=== PATIENT | female | born 1950 | race Caucasian/White ===

== ENCOUNTER → 2017-07-09 | Outpatient (CLI) | payer OTHER | LOC: FIMAGING 16:13 | PROVIDERS: ATTEND Internal Medicine | DX: R05 Cough (principal) ==

== ENCOUNTER 2017-07-13 10:52 | Day surgery (SDC) | payer OTHER ==
[2017-07-13] MEDS ORDERED: LIDOCAINE 1% 2 ML INJ ID PRN (11:10)
[2017-07-13] MEDS ORDERED: LR 1,000 ML IV ONE (11:10)
[2017-07-13] MEDS ORDERED: fentaNYL 250 MCG/5 ML INJ ONE (12:02)
[2017-07-13] MEDS ORDERED: PROPOFOL 200 MG/20 ML VIAL ONE (12:03)
[2017-07-13] MEDS ORDERED: fentaNYL 100 MCG/2 ML INJ ONE (12:04)
--- NOTE | 2017-07-13 12:22 | PDANEPAE ---
ANE History of Present Illness 66 year old female with weight loss and GI distress. ANE Past Medical History - Cardiovascular History Hx Hypertension: No Hx Arrhythmias: No Hx Chest Pain: No Hx Coronary Artery / Peripheral Vascular Disease: No Hx CHF / Valvular Disease: No Hx Palpitations: No - Pulmonary History Hx COPD: No Hx Asthma/Reactive Airway Disease: No Hx Recent Upper Respiratory Infection: No Hx Oxygen in Use at Home: Yes Hx Sleep Apnea: Yes Sleep Apnea Screening Result - Last Documented: Negative Pulmonary History Comment: night time O2. - Neurologic History Hx Cerebrovascular Accident: No Hx Seizures: No Hx Dementia: No Neurologic History Comment: Matt-Narciso syndrome, with whole body neuropathy sequelae. - Endocrine History Hx Diabetes: No - Renal History Hx Renal Disorders: No - Liver History Hx Hepatic Disorders: No - Neurological & Psychiatric Hx Hx Neurological and Psychiatric Disorders: Yes Neurological / Psychiatric History Comment: Lumbar compression fx; polyneuropathy;Hx of peripheral neuropathy. "failed spine surgery" - Cancer History Hx Cancer: No - Congenital Disorder History Hx Congenital Disorders: No - GI History Hx Gastrointestinal Disorders: Yes Gastrointestinal History Comment: recent loss of 10 lbs., epigastric pain, early satiety. Hx of gastric erosions-Dx by Dr Baltazar-took 2-3 yrs to heal. These are secondary to Patrick Narciso Syndrome. - Other Health History Other Health History: Patrick Narciso Syndrome. L femoral neck fx -no surgery required. - Chronic Pain History Chronic Pain: Yes (abd) - Surgical History Prior Surgeries: C6/C7 fusion ANE Review of Systems Review of Systems: No URI/fever x 2 weeks. Recent cough - "bronchial" per pt, feels it is attributed to increase in smoking recently. - Exercise capacity METS (RN): 4 METS - Systems Constitutional: Reports: weight loss Cardiac: Reports: no symptoms Respiratory: Reports: cough ANE Patient History - Allergies Allergies/Adverse Reactions: Sulfa (Sulfonamide Antibiotics) Allergy (Severe, Verified 07/31/15 00:01) Patrick Narciso Syndrome SULFONAMIDES Allergy (Uncoded 07/31/15 00:01) - Home Medications Home medications: home medication list seen and reviewed Home Medications: Gabapentin [Neurontin 300 MG (*)] 300 mg PO TID 07/31/15 [Last Taken 07/13/17] Pregabalin [Lyrica] 25 mg PO TID 07/31/15 [Last Taken 07/13/17] Ranitidine HCl [Zantac] 150 mg PO BID PRN 07/31/15 [Last Taken 07/12/17] fentaNYL [Duragesic 75 MCG Patch (*)] 75 mcg TD Q72H 07/31/15 [Last Taken ] oxyCODONE IR [Oxycodone Ir (*)] 15 mg PO Q4 PRN 07/31/15 [Last Taken 07/12/17] Phenergan 07/04/17 [Last Taken 07/13/17] Prevacid 07/04/17 [Last Taken 07/13/17] Valium 07/04/17 [Last Taken 07/12/17] - NPO status NPO Since - Liquids (Date): 07/13/17 NPO Since - Liquids (Time): 09:00 NPO Since - Solids (Date): 07/12/17 NPO Since - Solids (Time): 17:00 - Anes Hx Anes Hx: no prior problems - Smoking Hx Smoking Status: Current every day smoker - Alcohol Use Alcohol Use: None - Family Anes Hx Family Anes Hx: none ANE Labs/Vital Signs - Vital Signs Blood Pressure: 133/70 Heart Rate: 62 Respiratory Rate: 18 O2 Sat (%): 92 Height: 160.02 cm Weight: 43.091 kg ANE Physical Exam - Airway Neck exam: decreased ROM Mallampati Score: Class 2 Mouth exam: normal dental/mouth exam - Pulmonary Pulmonary: expiratory wheeze - Cardiovascular Cardiovascular: regular rate and rhythym - ASA Status ASA Status: III ANE Anesthesia Plan Anesthesia Plan: GA with mask Total IV Anesthesia: Yes
[2017-07-13] MEDS ORDERED: IPRATROPIUM/ALBUTEROL 3 ML DEYVIAL IH PRN (12:28)
[2017-07-13] MEDS ORDERED: ONDANSETRON 4 MG/2 ML VIAL ONE (12:38)
[2017-07-13] MEDS ORDERED: DEXAMETHASONE 4 MG/ML VIAL ONE (12:38)
--- NOTE | 2017-07-13 12:39 | PDGENHP ---
History & Physical Chief Complaint: epi pain, weight loss, anorexia History of Present Illness: epi pain, weight loss, anorexia Pertinent Past, Social, Family History: no cc, no tob, no alcohol Relevant Physical Exam: CAT. S1S2, RRR. +BS soft epi pain no r/g. A+Ox3 Cardiorespiratory Assessment: class 2
--- NOTE | 2017-07-13 13:02 | POSTOPPROG ---
Post Op Note Date of Operation: 07/13/17 Surgeon: Cesar Baltazar Anesthesiologist: Cecilia Anesthesia: Other (Specify) (IV general) Pre-op Diagnosis: epi pain, weight loss, anorexia Post-op Diagnosis: gastritis, no ulcer no mass, query Huffman's? Indication: anorexia, weight loss, epi pain Procedure: EGD and bx Findings: nml esoph, nml duodenum, gastritis no ulcer Inf/Abcess present in the surg proc area at time of surgery?: No EBL: Minimal (few ml from gastric bx) Total fluids administered: 200 ml LR Complications: none immediate
--- NOTE | 2017-07-13 13:13 | POSTANESTH ---
Post Anesthetic Evaluation Cardiovascular Status: Normal, Stable Respiratory Status: Normal, Stable Level of Consciousness/Mental Status: Can Participate in Eval, Mildly Sleepy, Arousable Pain Control: Adequate, Prn Tx Ordered Nausea/Vomiting Control: Adequate, Prn Tx Ordered Complications Possibly Related to Anesthesia: None Noted
[2017-07-13 13:27] VITALS: PULSE 71
--- NOTE | 2017-07-13 14:11 | GPN ---
[f rep st] PROCEDURE NOTE DATE OF PROCEDURE: 07/13/2017 PROCEDURE: EGD and biopsy. PREPROCEDURE DIAGNOSIS: Rule out ulcers, rule out mass. POSTPROCEDURE DIAGNOSES: 1. Normal esophagus. 2. Moderate to severe diffuse gastritis without ulcerations or mass. 3. Normal duodenal bulb. INDICATION: Epigastric pain, weight loss, anorexia. INFORMED CONSENT: I did discuss with the patient regarding the procedure, alternatives, benefits an d risks including bleeding, perforation, infection and risks of medication. Informed consent was si gned and witnessed. COMPLICATIONS: None immediate. MEDICATIONS USED: IV general per Dr. Flores. DESCRIPTION OF PROCEDURE: After adequate sedation, patient remained in left lateral decubitus posit ion, and I advanced the forward-viewing upper endoscope via the oropharynx and down the esophagus un marino direct visualization. The esophageal mucosa was normal in the proximal midesophagus. There was a possible short area of columnar mucosa in the distal esophagus. I advanced the scope into the st omach. There was diffuse gastritis with erythema and granularity and friability. There were no ulc ers or masses. The pylorus was normal. The duodenal bulb and sweep were normal. The endoscope was withdrawn back in the stomach, and biopsies were taken from the antrum, angularis and distal body, and the greater curvature for histologic evaluation. Retroflexed examination was performed. The en doscope was un-retroflexed and withdrawn to the esophagus. Biopsies in the distal esophagus were ob tained to evaluate for any evidence of Huffman's. The endoscope was then completely removed, confir celio the above findings. The patient tolerated the procedure well and was transferred to [facility] in satisfactory condition. IMPRESSION: 1. 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 2. Diffuse gastritis without evidence of ulceration or mass. 3. Normal duodenum. RECOMMENDATIONS: 1. Continue Prevacid at timing half an hour before dinner. Previously, she was taking it at bedtim e. Most of her issues are at night, so I am having her take it before dinner instead of before luanne kfast, although breakfast is another option. 2. Continue ranitidine 300 mg q.h.s. for nighttime symptoms. 3. Once she has resolution of symptoms, I would decrease the nighttime acid medication by tapering from 300 to 150, 150 to 75, and then off. If she continues to do well, then I would have her decrea se the proton pump inhibitor. I would not do this until 8 weeks of therapy to heal up all the infla mmation we have seen. After that, she can decrease to every other day for 14 days, every 3rd day fo r 15 days, and every 4th day for 16 days. As long as symptoms do not recur, she can stop the medica tion. 4. The correct amount of acid-reducing medication will be the least amount that controls her sympto ms after treating the gastritis as noted above. 5. I do recommend colon cancer screening at some point. I expect as she improves with her upper sy mptoms that she will be able to do a colonoscopy prep. I will have her in recall for approximately 6 weeks to see if she is ready at that point. 6. Follow up with primary care physician as scheduled. Thank you for allowing me to participate in the patient's healthcare. Do not hesitate to call me wi th any questions. /[id number]/MODL
[2017-07-13 14:50] VITALS: BP 141/71; RESP 16; O2SAT 92
[2017-07-13 15:11] VITALS: TEMP 97.7
== END 2017-07-13 14:55 | disposition home or self-care (01) ==
LOC: FSGY 10:52
PROVIDERS: ATTEND Internal Medicine Gastroenterology
DX: K29.70 Gastritis, unspecified, without bleeding (principal); R10.13 Epigastric pain; R63.4 Abnormal weight loss; R68.81 Early satiety; L51.1 Stevens-Johnson syndrome; Z98.1 Arthrodesis status
CPT/HCPCS: J1100; J2405; J2704; J3010

== ENCOUNTER 2017-09-11 08:18 | Inpatient (IN) | payer OTHER ==
--- NOTE | 2017-09-11 09:01 | EDPHY ---
H & P Time Seen by Provider: 09/11/17 08:52 HPI/ROS: CHIEF COMPLAINT: Cough and short of breath HISTORY OF PRESENT ILLNESS: Patient started getting symptoms this past week on or Monday, with cough and increasing shortness of breath. No fevers or chills. No chest pain. Symptoms moderate to severe and shortness of breath much worse with any exertion today. She has tobacco smoker but has not smoked since her illness started. Not associated with coughing up blood, or leg swelling. No fever or chills. REVIEW OF SYSTEMS: Eye: no change in vision ENT: no sore throat Cardiac: no chest pain or syncope Pulmonary: HPI Abdomen: Chronic abdominal pain after Matt-Narciso, no vomiting or diarrhea. She has nausea. Musculoskeletal: Chronic neck pain after fusion Skin: no rash Neuro: no headache Constitutional: no fever, has had weight loss and decreased appetite : no urinary symptoms A comprehensive 10 point review of systems is otherwise negative aside from elements mentioned in the history of present illness. PAST MEDICAL HISTORY: Cervical fusion, chronic pain, peripheral neuropathy. Social history: Tobacco smoker General Appearance: Alert and conversant, cooperative. Eyes: No scleral icterus. ENT, Mouth: Normal mucous membranes. Respiratory: Rhonchi on the left side greater than the right. Cardiovascular: Regular rate and rhythm. No murmur. Gastrointestinal: Abdomen is soft and non tender. Neurological: Alert and oriented x3. Normally conversant. Face symmetric, normal movement and sensation in all extremities. Skin: Warm and dry, no rashes. Musculoskeletal: No peripheral edema and no joint swelling. No calf tenderness. Psychiatric: Not agitated. Emergency Department course/MDM: Noted to be tachycardic and hypoxic. Plan for blood cultures, chest x-ray, EKG and laboratory. 1025: Oxygen saturation 93-96% on nasal cannula, still has rhonchi and wheezing bilaterally. Plan for steroids, nebulizer treatment, admission for supportive care. Clear chest x-ray and normal white blood cell count, doubt pneumonia. Bronchitis more likely than pulmonary embolism, negative D-dimer, further imaging not clinically indicated. Admission for severe bronchitis with hypoxemia. Smoking Status: Current every day smoker Constitutional: Initial Vital Signs Temperature (C) 36.8 C 09/11/17 08:25 Heart Rate 114 H 09/11/17 08:25 Respiratory Rate 20 09/11/17 08:25 Blood Pressure 187/90 H 09/11/17 08:25 O2 Sat (%) 82 L 09/11/17 08:25 O2 Delivery Mode Room Air Allergies/Adverse Reactions: Sulfa (Sulfonamide Antibiotics) Allergy (Severe, Verified 07/31/15 00:01) Patrick Narciso Syndrome SULFONAMIDES Allergy (Uncoded 07/31/15 00:01) Home Medications: Medication Instructions Recorded Gabapentin [Neurontin 300 MG (*)] 300 mg PO QID 07/31/15 Pregabalin [Lyrica] 25 mg PO QID 07/31/15 Lansoprazole [Prevacid] 30 mg PO BIDMEAL 07/04/17 Promethazine HCl [Phenergan 25mg 12.5 - 25 mg PO BID PRN 07/04/17 (*)] Baclofen [Baclofen 10 mg (*)] 10 mg PO TID PRN 09/11/17 Calcium Carbonate [Oyster Shell 500 mg PO DAILY 09/11/17 Calcium 500 mg (*)] Herbals/Supplements -Info Only 1 ea PO DAILY 09/11/17 Multivitamins [Multivitamin (*)] 1 each PO DAILY 09/11/17 Ranitidine HCl [Zantac] 300 mg PO HS 09/11/17 Sucralfate [Carafate 1 GM (*)] 1 gm PO HS 09/11/17 fentaNYL [Duragesic 100 MCG Patch 100 mcg TD Q2D 09/11/17 (*)] fentaNYL [Duragesic 12 MCG Patch 12 mcg TD Q3D 09/11/17 (*)] oxyCODONE IR [Oxycodone Ir (*)] 10 - 20 mg PO QID PRN 09/11/17 Medical Decision Making - Diagnostics EKG Interpretation: 12-lead EKG interpreted by me; official reading is in trace master. My interpretation is sinus rhythm with late anterior RS transition, left atrial abnormality Imaging Results: Imaging Impressions Chest X-Ray 09/11/17 08:59 Impression: COPD/airways disease. No evidence for aspiration pneumonia. Differential Diagnosis: Differential diagnosis considered for shortness of breath including but not limited to pulmonary infectious process, COPD, asthma, pulmonary embolus and congestive heart failure. Consult/Admit Bed Type: [place] [id number] - Data Points Laboratory Results: Laboratory Results 09/11/17 09:30 09/11/17 09:30 09/11/17 09/11/17 09/11/17 09:30 09:30 09:30 WBC 7.34 10^3/uL 10^3/uL (3.80-9.50) RBC 5.13 10^6/uL 10^6/uL (4.18-5.33) Hgb 15.6 g/dL g/dL (12.6-16.3) Hct 44.8 % % (38.0-47.0) MCV 87.3 fL fL (81.5-99.8) MCH 30.4 pg pg (27.9-34.1) MCHC 34.8 g/dL g/dL (32.4-36.7) RDW 13.2 % % (11.5-15.2) Plt Count 125 10^3/uL L 10^3/uL (150-400) MPV 11.9 fL H fL (8.7-11.7) Neut % (Auto) 83.7 % H % (39.3-74.2) Lymph % (Auto) 7.9 % L % (15.0-45.0) [place] % (Auto) 8.0 % % (4.5-13.0) Eos % (Auto) 0.0 % L % (0.6-7.6) Baso % (Auto) 0.1 % L % (0.3-1.7) Nucleat RBC Rel Count 0.0 % % (0.0-0.2) Absolute Neuts (auto) 6.14 10^3/uL 10^3/uL (1.70-6.50) Absolute Lymphs (auto) 0.58 10^3/uL L 10^3/uL (1.00-3.00) Absolute Monos (auto) 0.59 10^3/uL 10^3/uL (0.30-0.80) Absolute Eos (auto) 0.00 10^3/uL L 10^3/uL (0.03-0.40) Absolute Basos (auto) 0.01 10^3/uL L 10^3/uL (0.02-0.10) Absolute Nucleated RBC 0.00 10^3/uL 10^3/uL (0-0.01) Immature Gran % 0.3 % % (0.0-1.1) Immature Gran # 0.02 10^3/uL 10^3/uL (0.00-0.10) PT 14.0 SEC SEC (12.0-15.0) INR 1.09 (0.83-1.16) APTT 32.5 SEC SEC (23.0-38.0) D-Dimer 0.40 ug/mLFEU ug/mLFEU (0.00-0.50) VBG Lactic Acid Sodium 134 mEq/L mEq/L (134-144) Potassium 4.1 mEq/L mEq/L (3.5-5.2) Chloride 96 mEq/L L mEq/L (97-110) Carbon Dioxide 26 mEq/l mEq/l (22-31) Anion Gap 12 mEq/L mEq/L (8-16) BUN 9 mg/dL mg/dL (7-23) Creatinine 0.6 mg/dL mg/dL (0.6-1.0) Estimated GFR > 60 Glucose 95 mg/dL mg/dL (70-100) Calcium 8.7 mg/dL mg/dL (8.5-10.4) Total Bilirubin 0.3 mg/dL mg/dL (0.1-1.4) 09/11/17 09:30 WBC RBC Hgb Hct MCV MCH MCHC RDW Plt Count MPV Neut % (Auto) Lymph % (Auto) [place] % (Auto) Eos % (Auto) Baso % (Auto) Nucleat RBC Rel Count Absolute Neuts (auto) Absolute Lymphs (auto) Absolute Monos (auto) Absolute Eos (auto) Absolute Basos (auto) Absolute Nucleated RBC Immature Gran % Immature Gran # PT INR APTT D-Dimer VBG Lactic Acid 1.2 mmol/L mmol/L (0.7-2.1) Sodium Potassium Chloride Carbon Dioxide Anion Gap BUN Creatinine Estimated GFR Glucose Calcium Total Bilirubin Medications Given: Azithromycin (Zithromax) 500 mg PO DAILY [facility] PRN Reason: Protocol Stop: 10/11/17 12:29 Last Admin: 09/11/17 13:10 Dose: 500 mg Guaifenesin (Mucinex) 1,200 mg PO BID [facility] Stop: 03/10/18 12:59 Last Admin: 09/11/17 13:13 Dose: 1,200 mg Oxycodone HCl (Oxycodone Ir) 10 - 20 mg PO QID PRN; Protocol PRN Reason: Pain, Severe Stop: 09/21/17 12:04 Last Admin: 09/11/17 13:09 Dose: 10 mg Discontinued Medications Albuterol (Proventil Neb) 3 ml IH EDNOW ONE Stop: 09/11/17 10:31 Last Admin: 09/11/17 10:50 Dose: 3 ml Albuterol/Ipratropium (Duoneb) 3 ml I[facility] EDNOW ONE Stop: 09/11/17 09:23 Last Admin: 09/11/17 09:48 Dose: 3 ml Ondansetron HCl (Zofran Odt) 4 mg PO EDNOW ONE Stop: 09/11/17 10:48 Last Admin: 09/11/17 10:49 Dose: 4 mg Prednisone (Prednisone) 60 mg PO EDNOW ONE Stop: 09/11/17 10:31 Last Admin: 09/11/17 10:50 Dose: 60 mg Departure - Departure Disposition: [facility] Acute Clinical Impression: Bronchitis, Hypoxemia Condition: Good
[2017-09-11] MEDS ORDERED: IPRATROPIUM/ALBUTEROL 3 ML DEYVIAL IH ONE ×2 (09:22)
--- NOTE | 2017-09-11 09:46 | CPEKG ---
Heart Rate: 97 RR Interval: 619 P-R Interval: 160 QRSD Interval: 80 QT Interval: 356 QTC Interval: 452 P [place]: 80 QRS [place]: 90 T Wave [place]: -18 EKG Severity - ABNORMAL ECG - EKG Impression: SINUS RHYTHM EKG Impression: LEFT ATRIAL ABNORMALITY EKG Impression: BORDERLINE RIGHT AXIS DEVIATION EKG Impression: CONSIDER ANTERIOR INFARCT EKG Impression: NONSPECIFIC T ABNORMALITIES, INFERIOR LEADS Electronically Signed By: Eduardo Mccauley 11-Sep-2017 09:48:24
--- NOTE | 2017-09-11 09:46 | CPEKG ---
Heart Rate: 97 RR Interval: 619 P-R Interval: 160 QRSD Interval: 80 QT Interval: 356 QTC Interval: 452 P [place]: 80 QRS [place]: 90 T Wave [place]: -18 EKG Severity - ABNORMAL ECG - EKG Impression: SINUS RHYTHM EKG Impression: LEFT ATRIAL ABNORMALITY EKG Impression: BORDERLINE RIGHT AXIS DEVIATION EKG Impression: CONSIDER ANTERIOR INFARCT EKG Impression: NONSPECIFIC T ABNORMALITIES, INFERIOR LEADS Electronically Signed By: Eduardo Mccauley 11-Sep-2017 09:48:24
[2017-09-11 09:48] LABS: PLATELET COUNT 125 10^3/uL (150-400)
[2017-09-11 10:07] LABS: INR 1.09 (0.83-1.16)
[2017-09-11] MEDS ORDERED: predniSONE 20 MG TAB PO ONE ×2 (10:30)
[2017-09-11] MEDS ORDERED: ALBUTEROL 3 ML DEYVIAL IH ONE ×2 (10:30)
[2017-09-11] MEDS ORDERED: ONDANSETRON DISINTEGRATING 4 MG TAB PO ONE ×2 (10:47)
[2017-09-11] MEDS ORDERED: ALBUTEROL 3 ML DEYVIAL IH PRN ×2 (12:03)
[2017-09-11] MEDS ORDERED: BACLOFEN 10 MG TAB PO PRN ×2 (12:05)
--- NOTE | 2017-09-11 12:35 | PDGENHP ---
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 She lives with her daughter and 2 grandchildren who have all recently been ill with a viral URI. Four days [employer] C[employer] DIRECT[employer], she began to have increased epigastric abdominal pain , loss of appetite and nausea. She then developed a dry cough and chest tightness, described as feeling like her lungs are tight. +sore throat. Mild subjective fevers. +headache. She was diagnosed recently with gastritis by EGD in 06/2017 and has been on PPI and Pepcid. However, she still feels her symptoms are poorly controlled. She has been a life-long smoker, but never diagnosed with COPD. She notes that doctors have mentioned it in the past. She uses 2 LPM nocturnal O2 and her PCP is working her up for possible sleep apnea, a concern that arose due to her high risk, high dose opioid regimen. She uses Fentanyl 112 mcg and oxycodone 10 -20 mg q4h. There is talk of tapering her dose. She asks for a pain pill before our visit ends. In the ED, she was hypoxic to 80% on room air. She received a nebulizer, along with 60 mg of Prednisone. A CXR is negative for pneumonia. She is admitted to the hospital for further management. History Information - Allergies/Home Medication List Allergies/Adverse Reactions: Sulfa (Sulfonamide Antibiotics) Allergy (Severe, Verified 07/31/15 00:01) Patrick Narciso Syndrome SULFONAMIDES Allergy (Uncoded 07/31/15 00:01) Home Medications: Gabapentin [Neurontin 300 MG (*)] 300 mg PO QID 07/31/15 [Last Taken 09/11/17] Pregabalin [Lyrica] 25 mg PO QID 07/31/15 [Last Taken 09/11/17] Lansoprazole [Prevacid] 30 mg PO BIDMEAL 07/04/17 [Last Taken 09/11/17] Promethazine HCl [Phenergan 25mg (*)] 12.5 - 25 mg PO BID PRN 07/04/17 [Last Taken 07/13/17] Baclofen [Baclofen 10 mg (*)] 10 mg PO TID PRN 09/11/17 [Last Taken Unknown] Calcium Carbonate [Oyster Shell Calcium 500 mg (*)] 500 mg PO DAILY 09/11/17 [ Last Taken Unknown] Herbals/Supplements -Info Only 1 ea PO DAILY 09/11/17 [Last Taken Unknown] Multivitamins [Multivitamin (*)] 1 each PO DAILY 09/11/17 [Last Taken Unknown] Ranitidine HCl [Zantac] 300 mg PO HS 09/11/17 [Last Taken 09/10/17] Sucralfate [Carafate 1 GM (*)] 1 gm PO HS 09/11/17 [Last Taken 09/10/17] fentaNYL [Duragesic 100 MCG Patch (*)] 100 mcg TD Q2D 09/11/17 [Last Taken 09/10] fentaNYL [Duragesic 12 MCG Patch (*)] 12 mcg TD Q3D 09/11/17 [Last Taken ] oxyCODONE IR [Oxycodone Ir (*)] 10 - 20 mg PO QID PRN 09/11/17 [Last Taken 09/11 10MG] I have personally reviewed and updated: family history, medical history, social history, surgical history - Past Medical History Additional medical history: chronic pain secondary to neck pain and radiculopathy. h/o mccray narciso syndrome due to bactrim. neuropathy. h/o hip fracture. continuous opioid dependence. gastritis. tobacco abuse. ?COPD - Surgical History Additional surgical history: cervical spine fusion 1999 - Family History Positive for: CAD - Social History Smoking Status: Current every day smoker Alcohol Use: None Drug Use: None Additional social history: Lives with daughter and grandchildren. She is a retired RN. Review of Systems Review of Systems: ROS: 10pt was reviewed & negative except for what was stated in HPI & below Physical Exam Physical Exam: Temp Pulse Resp BP Pulse Ox 37 C 107 H 18 106/65 95 09/11/17 10:58 09/11/17 10:58 09/11/17 10:58 09/11/17 10:58 09/11/17 10:58 O2 (L/minute) 2 Constitutional: no apparent distress Eyes: PERRL Ears, Nose, Mouth, Throat: moist mucous membranes Cardiovascular: regular rate and rhythym Respiratory: no respiratory distress, reduced air movement, expiratory wheeze Gastrointestinal: normoactive bowel sounds, soft, non-tender abdomen Skin: warm Musculoskeletal: full muscle strength Neurologic: AAOx3 Lab Data & Imaging Review 09/11/17 09:30 09/11/17 09:30 WBC 7.34 10^3/uL (3.80-9.50) 09/11/17 09:30 RBC 5.13 10^6/uL (4.18-5.33) 09/11/17 09:30 Hgb 15.6 g/dL (12.6-16.3) 09/11/17 09:30 Hct 44.8 % (38.0-47.0) 09/11/17 09:30 MCV 87.3 fL (81.5-99.8) 09/11/17 09:30 MCH 30.4 pg (27.9-34.1) 09/11/17 09:30 MCHC 34.8 g/dL (32.4-36.7) 09/11/17 09:30 RDW 13.2 % (11.5-15.2) 09/11/17 09:30 Plt Count 125 10^3/uL (150-400) L 09/11/17 09:30 MPV 11.9 fL (8.7-11.7) H 09/11/17 09:30 Neut % (Auto) 83.7 % (39.3-74.2) H 09/11/17 09:30 Lymph % (Auto) 7.9 % (15.0-45.0) L 09/11/17 09:30 [place] % (Auto) 8.0 % (4.5-13.0) 09/11/17 09:30 Eos % (Auto) 0.0 % (0.6-7.6) L 09/11/17 09:30 Baso % (Auto) 0.1 % (0.3-1.7) L 09/11/17 09:30 Nucleat RBC Rel Count 0.0 % (0.0-0.2) 09/11/17 09:30 Absolute Neuts (auto) 6.14 10^3/uL (1.70-6.50) 09/11/17 09:30 Absolute Lymphs (auto) 0.58 10^3/uL (1.00-3.00) L 09/11/17 09:30 Absolute Monos (auto) 0.59 10^3/uL (0.30-0.80) 09/11/17 09:30 Absolute Eos (auto) 0.00 10^3/uL (0.03-0.40) L 09/11/17 09:30 Absolute Basos (auto) 0.01 10^3/uL (0.02-0.10) L 09/11/17 09:30 Absolute Nucleated RBC 0.00 10^3/uL (0-0.01) 09/11/17 09:30 Immature Gran % 0.3 % (0.0-1.1) 09/11/17 09:30 Immature Gran # 0.02 10^3/uL (0.00-0.10) 09/11/17 09:30 PT 14.0 SEC (12.0-15.0) 09/11/17 09:30 INR 1.09 (0.83-1.16) 09/11/17 09:30 APTT 32.5 SEC (23.0-38.0) 09/11/17 09:30 D-Dimer 0.40 ug/mLFEU (0.00-0.50) 09/11/17 09:30 VBG Lactic Acid 1.2 mmol/L (0.7-2.1) 09/11/17 09:30 Sodium 134 mEq/L (134-144) 09/11/17 09:30 Potassium 4.1 mEq/L (3.5-5.2) 09/11/17 09:30 Chloride 96 mEq/L (97-110) L 09/11/17 09:30 Carbon Dioxide 26 mEq/l (22-31) 09/11/17 09:30 Anion Gap 12 mEq/L (8-16) 09/11/17 09:30 BUN 9 mg/dL (7-23) 09/11/17 09:30 Creatinine 0.6 mg/dL (0.6-1.0) 09/11/17 09:30 Estimated GFR > 60 09/11/17 09:30 Glucose 95 mg/dL (70-100) 09/11/17 09:30 Calcium 8.7 mg/dL (8.5-10.4) 09/11/17 09:30 Total Bilirubin 0.3 mg/dL (0.1-1.4) 10/30/17 09:30 Assessment & Plan Assessment: Acute hypoxemic respiratory failure secondary to bronchitis / suspected COPD exacerbation, likely viral. She has not been diagnosed with COPD, but CXR shows hyperexpanded lung salvador in setting of correction tobacco use. Uses 2 LPM O2 at night. -send respiratory pathogen panel -wean O2 as able -scheduled duonebs, prn albuterol nebs -prednisone burst, day 1/5 -add azithromycin -recommend home Rx for spiriva, albuterol -needs outpt PFT's Tobacco abuse - declines patch, counseled on importance of cessation Abnormal EKG - T wave changes in inferior leads noted, this is unchanged from prior EKG. Pt chest pain free at this time. -check trop -likely warrants outpt risk stratification Thrombocytopenia - new, mild. Suspect secondary to acute illness. Follow. Chronic cervical spine pain with continuous opioid dependence - cont home doses of fentanyl and oxycodone, which of note total 375 morphine equivalents. -encouraged continuing outpt taper Gastritis - cont PPI and H2 effei Neuropathy - cont gabapentin and lyrica Full code DVT PPLX - Lovenox Dispo - inpt, suspect she'll require >48 hrs hospitalization due to hypoxemia and likely COPD exacerbation
[2017-09-11] MEDS: oxyCODONE IR 5 MG TAB PO PRN ×6 (13:09→21:14)
[2017-09-11] MEDS: AZITHROMYCIN 250 MG TAB PO SCH ×2 (13:10)
[2017-09-11] MEDS: guaiFENesin 600 MG TAB.ER PO SCH ×4 (13:13→20:28)
[2017-09-11] MEDS: GABAPENTIN 300 MG CAP PO SCH ×4 (15:14→20:27)
[2017-09-11] MEDS: PREGABALIN 25 MG CAP PO SCH ×4 (15:14→20:27)
[2017-09-11] MEDS: IPRATROPIUM/ALBUTEROL 3 ML DEYVIAL IH SCH ×4 (15:31→19:55)
[2017-09-11] MEDS ORDERED: NS 1,000 ML IV ONE ×2 (16:41)
[2017-09-11] MEDS: ONDANSETRON DISINTEGRATING 4 MG TAB PO PRN ×2 (17:17)
[2017-09-11] MEDS: PANTOPRAZOLE SODIUM 40 MG TAB PO SCH ×4 (17:17→17:24)
[2017-09-11] MEDS ORDERED: LANSOPRAZOLE SUSP 3 MG/ML UDSYR (Peds) PO SCH ×2 (18:00)
[2017-09-11] MEDS: SUCRALFATE 1 GM TAB PO SCH ×2 (20:27)
[2017-09-11] MEDS: FAMOTIDINE 20 MG TAB PO SCH ×2 (20:27)
[2017-09-11] MEDS: guaiFENesin/CODEINE PHOS 10 ML UDCUP PO PRN ×2 (20:27)
[2017-09-11] MEDS ORDERED: NON-FORMULARY NEW DRUG (Ranitidine Hcl [Zantac] 300 MG) PO SCH ×4 (21:00)
[2017-09-12] MEDS: oxyCODONE IR 5 MG TAB PO PRN ×12 (02:56→22:33)
[2017-09-12] MEDS: IPRATROPIUM/ALBUTEROL 3 ML DEYVIAL IH SCH ×8 (04:58→22:04)
[2017-09-12 05:17] LABS: PLATELET COUNT 110 10^3/uL (150-400)
[2017-09-12] MEDS: NS 1,000 ML IV SCH ×4 (05:24→16:09)
[2017-09-12] MEDS: PREGABALIN 25 MG CAP PO SCH ×8 (05:28→21:32)
[2017-09-12] MEDS: GABAPENTIN 300 MG CAP PO SCH ×8 (05:28→21:32)
[2017-09-12] MEDS: PANTOPRAZOLE SODIUM 40 MG TAB PO SCH ×2 (08:28)
[2017-09-12] MEDS: ONDANSETRON DISINTEGRATING 4 MG TAB PO PRN ×2 (08:28)
[2017-09-12] MEDS ORDERED: fentaNYL 12 MCG PATCH TD SCH ×4 (09:00→21:00)
[2017-09-12] MEDS ORDERED: fentaNYL 100 MCG PATCH TD SCH ×2 (09:00)
[2017-09-12] MEDS: ENOXAPARIN 40 MG/0.4 ML SYR SC SCH ×2 (11:13)
[2017-09-12] MEDS: AZITHROMYCIN 250 MG TAB PO SCH ×2 (11:18)
[2017-09-12] MEDS: CALCIUM CARBONATE 500 MG TAB PO SCH ×2 (11:18)
[2017-09-12] MEDS: guaiFENesin 600 MG TAB.ER PO SCH ×4 (11:18→21:33)
[2017-09-12] MEDS: predniSONE 20 MG TAB PO SCH ×2 (11:25)
[2017-09-12] MEDS: ACETYLCYSTEINE 10% 30 ML VIAL IH SCH ×8 (11:56→22:09)
--- NOTE | 2017-09-12 14:52 | HOSPPROG ---
Hospitalist Progress Note Assessment/Plan: 66 yo F with hx of chronic pain, gastritis, chronic respiratory failure and copd presenting with acute on chronic resp failure as well as continued abdominal pain # acute on chronic respiratory failure: at baseline on 2L only at night and presenting with o2 sats of 82% on RA. Improving on current therapies. Suspect largely due to copd with acute exacerbation likely due to viral infection. Respiratory pcr panel negative, cultures pending. # copd with acute exacerbation: as above, continue scheduled nebs and will add mucomyst as she is having difficulty with expectoration. Azithro for 5 days and short course of prednisone. # gastritis: patient has been having abdominal pain/n/v and followed by GI, EGD performed on 08/12 showing continued erosions. She is maintained on ppi and h2b and her sxs are slowly improving, tolerating diet. # chronic pain with continuous narcotic use and dependency: will continue her op regimen, she has been compliant with her use of narcotics # severe protein calorie malnutrition: patient with evidence of cachexia and has recently lost a further 10 pounds. Will ask for dietary consult, nourishment with meals # thrombocytopenia/anemia: mild and will continue to trend # dispo: IP status, will need > 48 hours stay for eval/mgmt of above Patient new to my care. Old records reviewed and summarized as above. Care plan reviewed with CM. Subjective: no significant overnight events, patient currently feeling still poor but maybe slightly better than yesterday, still sob, still with some abd pain Objective: Vital Signs Temp Pulse Resp BP Pulse Ox 36.7 C 81 18 109/57 L 91 L 09/12/17 07:57 09/12/17 07:57 09/12/17 07:57 09/12/17 07:57 09/12/17 07:57 Microbiology 09/11/17 13:30 Respiratory Panel (PCR) - Final Nasal, Sinus - Swab No Organism Detected Laboratory Results 09/12/17 04:44 09/11/17 09/12/17 09/13/17 05:59 05:59 05:59 Intake Total 3300 Output Total 950 Balance 2350 PT 14.0 SEC (12.0-15.0) 09/11/17 09:30 INR 1.09 (0.83-1.16) 09/11/17 09:30 awake alert cachectic anicteric op clear rrr no mrg scattered rhonchi and occasional wheeze soft nt nd no cce warm dry well perfused oriented appropriate ICD10 Worksheet Patient Problems: Problems Problem Status Onset Fracture of neck of femur Acute Bronchitis Acute Hypoxemia Acute
--- NOTE | 2017-09-12 15:54 | PDMN ---
Medical Necessity Medical necessity: Change to IP, as of 09/12/17, per MD; los >2mn for ongoing eval/tx of acute on chronic respiratory failure, COPD w/acute exacerbation, gastritis, severe protein calorie malnutrition, thrombocytopenia/anemia; per progress note 09/12/17
--- NOTE | 2017-09-12 17:02 | ASMTCASEMG ---
Living Arrangements What is your living Answers: With Other Relative(s) arrangement? Who do you live with? Type Of Residence What kind of residence do Answers: House you live in? Case Management Evaluation Functional: Able to Answers: Yes return Home with Prior Level of Function/Care Discharge Plan Comments Coordination Status Comments Notes: Patient her e with respiratory failur and copd. Patients family has recently been ill prior to coming to hospital with symptome. Still unknown what patient needs will be on discharge. Case management will continue to follow. Date Signed: 09/12/2017 05:01 PM Electronically Signed By:KRISTEN Morocho
[2017-09-12] MEDS: SUCRALFATE 1 GM TAB PO SCH ×2 (21:33)
[2017-09-12] MEDS: FAMOTIDINE 20 MG TAB PO SCH ×2 (21:34)
[2017-09-12] MEDS: fentaNYL 100 MCG PATCH TD SCH ×2 (21:35)
[2017-09-12] MEDS: guaiFENesin/CODEINE PHOS 10 ML UDCUP PO PRN ×2 (22:33)
[2017-09-12] MEDS: fentaNYL 12 MCG PATCH TD SCH ×2 (22:34)
[2017-09-13] MEDS: NS 1,000 ML IV SCH ×2 (03:25)
[2017-09-13] MEDS: ONDANSETRON 4 MG/2 ML VIAL IVP PRN ×4 (03:26→08:39)
[2017-09-13] MEDS: guaiFENesin/CODEINE PHOS 10 ML UDCUP PO PRN ×4 (04:34→22:40)
[2017-09-13] MEDS: GABAPENTIN 300 MG CAP PO SCH ×8 (04:35→21:20)
[2017-09-13] MEDS: oxyCODONE IR 5 MG TAB PO PRN ×12 (04:35→22:40)
[2017-09-13] MEDS: PREGABALIN 25 MG CAP PO SCH ×8 (04:35→21:20)
[2017-09-13 04:52] LABS: PLATELET COUNT 138 10^3/uL (150-400)
[2017-09-13] MEDS: ACETYLCYSTEINE 10% 30 ML VIAL IH SCH ×8 (06:17→22:24)
[2017-09-13] MEDS: IPRATROPIUM/ALBUTEROL 3 ML DEYVIAL IH SCH ×8 (06:18→22:24)
[2017-09-13] MEDS: ACETAMINOPHEN 325 MG TAB PO PRN ×2 (07:50)
[2017-09-13] MEDS: guaiFENesin 600 MG TAB.ER PO SCH ×4 (08:06→21:20)
[2017-09-13] MEDS: PANTOPRAZOLE SODIUM 40 MG TAB PO SCH ×4 (08:07→18:00)
[2017-09-13] MEDS: AZITHROMYCIN 250 MG TAB PO SCH ×2 (08:07)
[2017-09-13] MEDS: ENOXAPARIN 40 MG/0.4 ML SYR SC SCH ×4 (08:07→08:11)
[2017-09-13] MEDS: predniSONE 20 MG TAB PO SCH ×2 (08:07)
[2017-09-13] MEDS: CALCIUM CARBONATE 500 MG TAB PO SCH ×2 (08:07)
[2017-09-13] MEDS: PROMETHAZINE HCL 25 MG TAB PO PRN ×2 (11:34)
[2017-09-13] MEDS: ONDANSETRON DISINTEGRATING 4 MG TAB PO PRN ×4 (12:59→18:00)
--- NOTE | 2017-09-13 16:46 | HOSPPROG ---
Hospitalist Progress Note Assessment/Plan: 66 yo F with hx of chronic pain, gastritis, chronic respiratory failure and copd presenting with acute on chronic resp failure as well as continued abdominal pain # acute on chronic respiratory failure: at baseline on 2L only at night and presenting with o2 sats of 82% on RA. Improving slowly on current therapies. Suspect largely due to copd with acute exacerbation likely due to viral infection. Respiratory pcr panel negative, cultures pending. # copd with acute exacerbation: as above, continue scheduled nebs, mucomyst and acapella as she is having difficulty with expectoration. Azithro for 5 days and short course of prednisone. # gastritis: patient has been having abdominal pain/n/v and followed by GI, EGD performed on 08/12 showing continued erosions. She is maintained on ppi and h2b and her sxs are slowly improving, tolerating diet. # chronic pain with continuous narcotic use and dependency: she has been being weaned slowly off of her pain medications by her pain clinic and notes that currently her pain is not controlled, discussed that we would not change her home regimen so as not to jeopardize her relationship with her pain doctor, but while in house will add additional oxy dose/day for improved pain mgmt # severe protein calorie malnutrition: patient with evidence of cachexia and has recently lost a further 10 pounds, BMI 18. Dietary involved, nourishment with meals # thrombocytopenia/anemia: mild and will continue to trend # dispo: IP status, will need > 48 hours stay for eval/mgmt of above Subjective: no significant overnight events, patient states her breathing isnt any better than when she arrived, also concerned about her pain medications and that her pain is currently uncontrolled Objective: Vital Signs Temp Pulse Resp BP Pulse Ox 36.3 C 81 16 97/52 L 92 09/13/17 15:28 09/13/17 16:00 09/13/17 16:00 09/13/17 15:28 09/13/17 16:00 Laboratory Results 09/13/17 04:34 09/13/17 04:34 09/12/17 09/13/17 09/14/17 05:59 05:59 05:59 Intake Total 1462 Balance 1462 PT 14.0 SEC (12.0-15.0) 09/11/17 09:30 INR 1.09 (0.83-1.16) 09/11/17 09:30 awake alert cachectic anicteric op clear rrr no mrg scattered rhonchi and occasional wheeze soft nt nd no cce warm dry well perfused oriented appropriate - Time Spent With Patient Time Spent with Patient: greater than 35 minutes Time Spent with Patient: Greater than 35 minutes spent on this patients care, greater than 50% of time spent counseling, educating, and coordinating care regarding the above mentioned plan. ICD10 Worksheet Patient Problems: Problems Problem Status Onset Bronchitis Acute Hypoxemia Acute chronic disease mgmt/transitional care Acute Fracture of neck of femur Acute
[2017-09-13] MEDS: FAMOTIDINE 20 MG TAB PO SCH ×2 (21:21)
[2017-09-13] MEDS: SUCRALFATE 1 GM TAB PO SCH ×2 (21:23)
[2017-09-14] MEDS: guaiFENesin/CODEINE PHOS 10 ML UDCUP PO PRN ×2 (04:11)
[2017-09-14] MEDS: oxyCODONE IR 5 MG TAB PO PRN ×16 (04:11→23:54)
[2017-09-14] MEDS: IPRATROPIUM/ALBUTEROL 3 ML DEYVIAL IH SCH ×8 (06:16→21:45)
[2017-09-14] MEDS: ONDANSETRON DISINTEGRATING 4 MG TAB PO PRN ×4 (08:16→19:42)
[2017-09-14] MEDS: CALCIUM CARBONATE 500 MG TAB PO SCH ×2 (09:13)
[2017-09-14] MEDS: GABAPENTIN 300 MG CAP PO SCH ×8 (09:13→21:49)
[2017-09-14] MEDS: AZITHROMYCIN 250 MG TAB PO SCH ×2 (09:13)
[2017-09-14] MEDS: PANTOPRAZOLE SODIUM 40 MG TAB PO SCH ×4 (09:14→18:20)
[2017-09-14] MEDS: guaiFENesin 600 MG TAB.ER PO SCH ×4 (09:14→21:49)
[2017-09-14] MEDS: predniSONE 20 MG TAB PO SCH ×2 (09:14)
[2017-09-14] MEDS: ENOXAPARIN 40 MG/0.4 ML SYR SC SCH ×2 (09:16)
[2017-09-14] MEDS: PREGABALIN 25 MG CAP PO SCH ×8 (09:34→21:49)
[2017-09-14] MEDS: ACETYLCYSTEINE 10% 30 ML VIAL IH SCH ×6 (10:22→21:45)
--- NOTE | 2017-09-14 13:58 | HOSPPROG ---
Hospitalist Progress Note Assessment/Plan: 66 yo F with hx of chronic pain, gastritis, chronic respiratory failure and copd presenting with acute on chronic resp failure as well as continued abdominal pain # acute on chronic respiratory failure: at baseline on 2L only at night and presenting with o2 sats of 82% on RA. Improving on current therapies. Suspect largely due to copd with acute exacerbation likely due to viral infection. Respiratory pcr panel negative, cultures with ngtd. # copd with acute exacerbation: as above, continue scheduled nebs, mucomyst and acapella as she is having difficulty with expectoration. Azithro for 5 days and short course of prednisone. # gastritis: patient has been having abdominal pain/n/v and followed by GI, EGD performed on 08/12 showing continued erosions. She is maintained on ppi and h2b and her sxs are slowly improving, tolerating diet. # chronic pain with continuous narcotic use and dependency: she has been being weaned slowly off of her pain medications by her pain clinic and notes that currently her pain is not controlled, also states that she is currently experiencing withdrawal symptoms despite being on higher doses of pain medications (increased oxycodone and addition of codeine) than she is on at home. Asked if she were taking more than what is prescribed at home and she denies. Discussed with her concerns over her relationship with narcotics, that this is her main concern despite her being here for a respiratory issue, explained that copd is not typically painful and that more narcotics will likely impair her ability to recover from above. She expressed understanding. Would not dc with additional pain medications and have her continue to follow with her pain provider in order to not jeopardize that relationship. # severe protein calorie malnutrition: patient with evidence of cachexia and has recently lost a further 10 pounds, BMI 18. Dietary involved, nourishment with meals # thrombocytopenia/anemia: mild and will continue to trend # dispo: IP status, will need > 48 hours stay for eval/mgmt of above, may be ready for dc on 09/15 Subjective: no significant overnight events, patient states her breathing is slightly better but she still cannot cough stuff up, she is not walking much, she feels she is having withdrawal symptoms from opiates despite current regimen which is more than her home reported regimen, she denies taking extra narcotics at home Objective: Vital Signs Temp Pulse Resp BP Pulse Ox 36.8 C 83 16 105/68 92 09/14/17 12:30 09/14/17 12:30 09/14/17 12:30 09/14/17 12:30 09/14/17 12:30 Laboratory Results 09/13/17 04:34 09/13/17 04:34 09/13/17 09/14/17 09/15/17 05:59 05:59 05:59 Intake Total 1462 2700 440 Balance 1462 2700 440 PT 14.0 SEC (12.0-15.0) 09/11/17 09:30 INR 1.09 (0.83-1.16) 09/11/17 09:30 awake alert cachectic anicteric op clear rrr no mrg scattered rhonchi and occasional wheeze soft nt nd no cce warm dry well perfused oriented appropriate ICD10 Worksheet Patient Problems: Problems Problem Status Onset Bronchitis Acute Hypoxemia Acute chronic disease mgmt/transitional care Acute Fracture of neck of femur Acute
[2017-09-14] MEDS: FUROSEMIDE 20 MG/2 ML VIAL IVP SCH ×2 (15:29)
[2017-09-14] MEDS ORDERED: BISACODYL 10 MG SUPP PR PRN ×2 (17:15)
[2017-09-14] MEDS ORDERED: POLYETHYLENE GLYCOL 3350 17 GM PKT PO PRN ×2 (17:15)
[2017-09-14] MEDS ORDERED: LACTULOSE 20 GM/30 ML UDCUP PO PRN ×2 (17:15)
[2017-09-14] MEDS ORDERED: MAGNESIUM HYDROXIDE 30 ML UDCUP PO PRN ×2 (17:15)
[2017-09-14] MEDS: fentaNYL 100 MCG PATCH TD SCH ×2 (21:46)
[2017-09-14] MEDS: SENNOSIDES/DOCUSATE SODIUM TAB PO SCH ×2 (21:49)
[2017-09-14] MEDS: FAMOTIDINE 20 MG TAB PO SCH ×2 (21:49)
[2017-09-14] MEDS: SUCRALFATE 1 GM TAB PO SCH ×2 (21:53)
[2017-09-14] MEDS: PROMETHAZINE HCL 25 MG TAB PO PRN ×2 (23:55)
[2017-09-15] MEDS: guaiFENesin/CODEINE PHOS 10 ML UDCUP PO PRN ×4 (00:52→21:44)
[2017-09-15] MEDS: oxyCODONE IR 5 MG TAB PO PRN ×14 (00:52→21:44)
[2017-09-15 04:58] LABS: PLATELET COUNT 177 10^3/uL (150-400)
[2017-09-15] MEDS: GABAPENTIN 300 MG CAP PO SCH ×8 (05:23→20:28)
[2017-09-15] MEDS: PREGABALIN 25 MG CAP PO SCH ×8 (05:23→20:28)
[2017-09-15] MEDS: IPRATROPIUM/ALBUTEROL 3 ML DEYVIAL IH SCH ×8 (06:37→21:14)
[2017-09-15] MEDS: PANTOPRAZOLE SODIUM 40 MG TAB PO SCH ×4 (08:50→17:39)
[2017-09-15] MEDS: guaiFENesin 600 MG TAB.ER PO SCH ×4 (08:53→20:28)
[2017-09-15] MEDS: AZITHROMYCIN 250 MG TAB PO SCH ×2 (08:54)
[2017-09-15] MEDS: CALCIUM CARBONATE 500 MG TAB PO SCH ×2 (08:55)
[2017-09-15] MEDS: SENNOSIDES/DOCUSATE SODIUM TAB PO SCH ×4 (08:55→20:29)
[2017-09-15] MEDS: ENOXAPARIN 40 MG/0.4 ML SYR SC SCH ×2 (08:57)
[2017-09-15] MEDS: FUROSEMIDE 20 MG/2 ML VIAL IVP SCH ×4 (08:58→15:33)
--- NOTE | 2017-09-15 09:08 | HOSPPROG ---
Hospitalist Progress Note Assessment/Plan: #acute on chronic hypoxemic resp failure: due to #COPD exacerbation: negative viral panel. Cont Azithro, nebs, pred Cont aggressive pulmonary toileting #Gastritis: seen on EGD 07/13. Negative H pylori & Huffman's. Cont PPI #Thrombocytopenia: resolved #Normocytic anemia: no active bleeding #Chronic pain and opioid dependency: FU with her pain clinic #Diet: regular #DVT ppx: Lovenox #Disp: cont inpt status for duonebs, pulse ox. Can DC tomorrow if clinically stable Subjective: still SOB, hardik with exertion Objective: Vital Signs Temp Pulse Resp BP Pulse Ox 37.1 C 83 18 137/77 H 93 09/15/17 07:48 09/15/17 07:48 09/15/17 07:48 09/15/17 07:48 09/15/17 07:48 Laboratory Results 09/15/17 04:35 09/13/17 04:34 09/14/17 09/15/17 09/16/17 05:59 05:59 05:59 Intake Total 2700 890 Balance 2700 890 PT 14.0 SEC (12.0-15.0) 09/11/17 09:30 INR 1.09 (0.83-1.16) 09/11/17 09:30 - Physical Exam Constitutional: other (very thin, frail) Eyes: PERRL Ears, Nose, Mouth, Throat: moist mucous membranes, hearing normal Cardiovascular: regular rate and rhythym, no murmur, rub, or gallop Respiratory: reduced air movement (poor air movement throughout with mild exp wheezing) Gastrointestinal: normoactive bowel sounds, soft, non-tender abdomen Genitourinary: no bladder fullness Skin: warm Musculoskeletal: full muscle strength Neurologic: AAOx3 ICD10 Worksheet Patient Problems: Problems Problem Status Onset Bronchitis Acute Hypoxemia Acute chronic disease mgmt/transitional care Acute Fracture of neck of femur Acute
[2017-09-15] MEDS: ACETAMINOPHEN 325 MG TAB PO PRN ×6 (09:43→20:32)
[2017-09-15] MEDS: ACETYLCYSTEINE 10% 30 ML VIAL IH SCH ×6 (10:35→21:14)
--- NOTE | 2017-09-15 12:39 | PDHOMEO2F ---
Home Oxygen Face to Face Home Orders: I certify that a physician or a nurse practitioner or physician's fiscal assistant has had a [id number] encounter with this patient on the date of this order due to the diagnosis listed, which relates to the primary reason the patient requires home oxygen. Alternative treatments have been tried, or considered, and deemed ineffective. It is anticipated that supplemental oxygen will result in improvement with treatment. Home oxygen qualifying diagnosis: COPD exacerbation SpO2 on room air (%): 84 Frequency of home oxygen needed: continuous Home oxygen liters per minute: 3 Home oxygen delivery device: nasal cannula Concentrator: No E-tanks for mobility and back up: Yes If ordering portable O2, is the patient mobile in the home?: Yes I certify that, based on these findings, the home oxygen is medically necessary for this patient for the following length of time. Length of time home oxygen needed: 1 month Home Oxygen Comment: Will need to FU with PCP for weaning
--- NOTE | 2017-09-15 12:39 | PDHOMEO2F ---
Home Oxygen Face to Face Home Orders: I certify that a physician or a nurse practitioner or physician's assistant professor of english has had a [id number] encounter with this patient on the date of this order due to the diagnosis listed, which relates to the primary reason the patient requires home oxygen. Alternative treatments have been tried, or considered, and deemed ineffective. It is anticipated that supplemental oxygen will result in improvement with treatment. Home oxygen qualifying diagnosis: COPD exacerbation SpO2 on room air (%): 84 Frequency of home oxygen needed: continuous Home oxygen liters per minute: 3 Home oxygen delivery device: nasal cannula Concentrator: No E-tanks for mobility and back up: Yes If ordering portable O2, is the patient mobile in the home?: Yes I certify that, based on these findings, the home oxygen is medically necessary for this patient for the following length of time. Length of time home oxygen needed: 1 month Home Oxygen Comment: Will need to FU with PCP for weaning
--- NOTE | 2017-09-15 12:39 | PDHOMEO2F ---
Home Oxygen Face to Face Home Orders: I certify that a physician or a nurse practitioner or physician's fish hatchery assistant has had a [id number] encounter with this patient on the date of this order due to the diagnosis listed, which relates to the primary reason the patient requires home oxygen. Alternative treatments have been tried, or considered, and deemed ineffective. It is anticipated that supplemental oxygen will result in improvement with treatment. Home oxygen qualifying diagnosis: COPD exacerbation SpO2 on room air (%): 84 Frequency of home oxygen needed: continuous Home oxygen liters per minute: 3 Home oxygen delivery device: nasal cannula Concentrator: No E-tanks for mobility and back up: Yes If ordering portable O2, is the patient mobile in the home?: Yes I certify that, based on these findings, the home oxygen is medically necessary for this patient for the following length of time. Length of time home oxygen needed: 1 month Home Oxygen Comment: Will need to FU with PCP for weaning
[2017-09-15] MEDS: predniSONE 20 MG TAB PO SCH ×2 (14:41)
[2017-09-15] MEDS: ONDANSETRON DISINTEGRATING 4 MG TAB PO PRN ×2 (15:30)
[2017-09-15] MEDS: SUCRALFATE 1 GM TAB PO SCH ×2 (20:28)
[2017-09-15] MEDS: FAMOTIDINE 20 MG TAB PO SCH ×2 (20:29)
[2017-09-15] MEDS: fentaNYL 12 MCG PATCH TD SCH ×2 (21:47)
[2017-09-16] MEDS: oxyCODONE IR 5 MG TAB PO PRN ×12 (04:52→16:09)
[2017-09-16] MEDS: GABAPENTIN 300 MG CAP PO SCH ×6 (04:53→16:22)
[2017-09-16] MEDS: PREGABALIN 25 MG CAP PO SCH ×6 (04:53→16:23)
[2017-09-16] MEDS: IPRATROPIUM/ALBUTEROL 3 ML DEYVIAL IH SCH ×6 (05:27→15:08)
[2017-09-16] MEDS: ONDANSETRON DISINTEGRATING 4 MG TAB PO PRN ×2 (08:25)
[2017-09-16] MEDS: SENNOSIDES/DOCUSATE SODIUM TAB PO SCH ×2 (08:27)
[2017-09-16] MEDS: PANTOPRAZOLE SODIUM 40 MG TAB PO SCH ×2 (08:27)
[2017-09-16] MEDS: AZITHROMYCIN 250 MG TAB PO SCH ×2 (08:27)
[2017-09-16] MEDS: guaiFENesin 600 MG TAB.ER PO SCH ×2 (08:27)
[2017-09-16] MEDS: predniSONE 20 MG TAB PO SCH ×2 (08:27)
[2017-09-16] MEDS: CALCIUM CARBONATE 500 MG TAB PO SCH ×2 (08:27)
[2017-09-16] MEDS: ENOXAPARIN 40 MG/0.4 ML SYR SC SCH ×2 (08:27)
[2017-09-16] MEDS: ACETYLCYSTEINE 10% 30 ML VIAL IH SCH ×4 (09:54→15:08)
[2017-09-16] MEDS: ACETAMINOPHEN 325 MG TAB PO PRN ×4 (10:20→16:09)
--- NOTE | 2017-09-16 11:26 | HOSPPROG ---
Hospitalist Progress Note Assessment/Plan: #acute on chronic hypoxemic resp failure: due to #COPD exacerbation: negative viral panel. Cont Azithro, nebs, pred Cont aggressive pulmonary toileting #Gastritis: seen on EGD 07/13. Negative H pylori & Huffman's. Cont PPI #Thrombocytopenia: resolved #Normocytic anemia: no active bleeding #Chronic pain and opioid dependency: FU with her pain clinic #Diet: regular #DVT ppx: Lovenox #Disp: DC today Subjective: feeling better. Less SOB when walking to bathroom Objective: Vital Signs Temp Pulse Resp BP Pulse Ox 36.9 C 82 18 121/82 H 96 09/16/17 08:15 09/16/17 10:01 09/16/17 10:01 09/16/17 08:15 09/16/17 10:01 Laboratory Results 09/15/17 04:35 09/16/17 04:34 09/15/17 09/16/17 09/17/17 05:59 05:59 04:59 Intake Total 890 1150 250 Output Total 2 Balance 890 1148 250 PT 14.0 SEC (12.0-15.0) 09/11/17 09:30 INR 1.09 (0.83-1.16) 09/11/17 09:30 - Physical Exam Constitutional: no apparent distress, cachectic Eyes: PERRL Ears, Nose, Mouth, Throat: moist mucous membranes, hearing normal Cardiovascular: regular rate and rhythym Respiratory: no respiratory distress, other (improved air movement at bases) Gastrointestinal: normoactive bowel sounds, soft, non-tender abdomen Genitourinary: no bladder fullness Skin: warm Musculoskeletal: full muscle strength Neurologic: AAOx3 ICD10 Worksheet Patient Problems: Problems Problem Status Onset Bronchitis Acute Hypoxemia Acute chronic disease mgmt/transitional care Acute Fracture of neck of femur Acute
--- NOTE | 2017-09-16 12:33 | ASDISCHSUM ---
Discharge Information Plan Status:Home with No Needs Medically Cleared to Leave:09/16/2017 Discharge Date:09/16/2017 CM D/C Disposition:Home, Routine, Self-Care ADT D/C Disposition:Home, Routine, Self-Care Projected Discharge Date:09/16/2017 04:00 PM Transportation at D/C:Family Discharge Delay Reason: Follow-Up Date:09/16/2017 04:00 PM Discharge Slot: Final Diagnosis:Bronchitis Placement Information Patient Contact Information Contact Name:BILL Relationship:Daughter Address: Work Phone: City: [facility] Phone: State/Zip Code: Email: Financial Information Financial Class: Primary Plan Desc:MEDICARE INPATIENT Primary Plan Number:[id number] Secondary Plan Desc:[facility] Secondary Plan Number:[id number] Assessment Information [facility] Initial CM Assessment Living Arrangements What is your living Answers: With Other Relative(s) arrangement? Who do you live with? Type Of Residence What kind of residence do Answers: House you live in? Case Management Evaluation Functional: Able to Answers: Yes return Home with Prior Level of Function/Care Discharge Plan Comments Coordination Status Comments Notes: Patient her e with respiratory failur and copd. Patients family has recently been ill prior to coming to hospital with symptome. Still unknown what patient needs will be on discharge. Case management will continue to follow. Date Signed: 09/12/2017 05:01 PM Electronically Signed By:KRISTEN Morocho [facility] CM Progress Note CM Note CM Note Notes: Patient to discharge home Independent with O2 later today. Patient very anxious about leaving but physician states she is ready to discharge but will allow her to discharge a little later today. Patient will discharge with O2 which was arranged by respiratory. No additional discharge needs apparent at lila time. Date Signed: 09/16/2017 12:32 PM Electronically Signed By:KRISTEN Morocho Intervention Information Intervention Type:*LOGAN-Signed Date of Service:09/12/2017 09:25 AM Patient Type:Observation Staff Member:Debra Alford Hours: Discipline: Severity: Comment:
--- NOTE | 2017-09-16 12:33 | ASDISCHSUM ---
Discharge Information Plan Status:Home with No Needs Medically Cleared to Leave:09/16/2017 Discharge Date:09/16/2017 CM D/C Disposition:Home, Routine, Self-Care ADT D/C Disposition:Home, Routine, Self-Care Projected Discharge Date:09/16/2017 04:00 PM Transportation at D/C:Family Discharge Delay Reason: Follow-Up Date:09/16/2017 04:00 PM Discharge Slot: Final Diagnosis:Bronchitis Placement Information Patient Contact Information Contact Name:BILL Relationship:Daughter Address: Work Phone: City: [facility] Phone: State/Zip Code: Email: Financial Information Financial Class: Primary Plan Desc:MEDICARE INPATIENT Primary Plan Number:[id number] Secondary Plan Desc:[facility] Secondary Plan Number:[id number] Assessment Information [facility] Initial CM Assessment Living Arrangements What is your living Answers: With Other Relative(s) arrangement? Who do you live with? Type Of Residence What kind of residence do Answers: House you live in? Case Management Evaluation Functional: Able to Answers: Yes return Home with Prior Level of Function/Care Discharge Plan Comments Coordination Status Comments Notes: Patient her e with respiratory failur and copd. Patients family has recently been ill prior to coming to hospital with symptome. Still unknown what patient needs will be on discharge. Case management will continue to follow. Date Signed: 09/12/2017 05:01 PM Electronically Signed By:KRISTEN Morocho [facility] CM Progress Note CM Note CM Note Notes: Patient to discharge home Independent with O2 later today. Patient very anxious about leaving but physician states she is ready to discharge but will allow her to discharge a little later today. Patient will discharge with O2 which was arranged by respiratory. No additional discharge needs apparent at lila time. Date Signed: 09/16/2017 12:32 PM Electronically Signed By:KRISTEN Morocho Intervention Information Intervention Type:*LOGAN-Signed Date of Service:09/12/2017 09:25 AM Patient Type:Observation Staff Member:Debra Alford Hours: Discipline: Severity: Comment:
--- NOTE | 2017-09-16 12:33 | ASDISCHSUM ---
Discharge Information Plan Status:Home with No Needs Medically Cleared to Leave:09/16/2017 Discharge Date:09/16/2017 CM D/C Disposition:Home, Routine, Self-Care ADT D/C Disposition:Home, Routine, Self-Care Projected Discharge Date:09/16/2017 04:00 PM Transportation at D/C:Family Discharge Delay Reason: Follow-Up Date:09/16/2017 04:00 PM Discharge Slot: Final Diagnosis:Bronchitis Placement Information Patient Contact Information Contact Name:BILL Relationship:Daughter Address: Work Phone: City: [facility] Phone: State/Zip Code: Email: Financial Information Financial Class: Primary Plan Desc:MEDICARE INPATIENT Primary Plan Number:[id number] Secondary Plan Desc:[facility] Secondary Plan Number:[id number] Assessment Information [facility] Initial CM Assessment Living Arrangements What is your living Answers: With Other Relative(s) arrangement? Who do you live with? Type Of Residence What kind of residence do Answers: House you live in? Case Management Evaluation Functional: Able to Answers: Yes return Home with Prior Level of Function/Care Discharge Plan Comments Coordination Status Comments Notes: Patient her e with respiratory failur and copd. Patients family has recently been ill prior to coming to hospital with symptome. Still unknown what patient needs will be on discharge. Case management will continue to follow. Date Signed: 09/12/2017 05:01 PM Electronically Signed By:KRISTEN Morocho [facility] CM Progress Note CM Note CM Note Notes: Patient to discharge home Independent with O2 later today. Patient very anxious about leaving but physician states she is ready to discharge but will allow her to discharge a little later today. Patient will discharge with O2 which was arranged by respiratory. No additional discharge needs apparent at lila time. Date Signed: 09/16/2017 12:32 PM Electronically Signed By:RKISTEN Morocho Intervention Information Intervention Type:*LOGAN-Signed Date of Service:09/12/2017 09:25 AM Patient Type:Observation Staff Member:Debra Alford Hours: Discipline: Severity: Comment:
--- NOTE | 2017-09-16 12:41 | GDS ---
[f rep st] DISCHARGE SUMMARY DISCHARGE DIAGNOSES: 1. Acute on chronic hypoxemic respiratory failure. 2. Suspected chronic obstructive pulmonary disease exacerbation. 3. Bronchitis. 4. Gastritis. 5. Thrombocytopenia. 6. Normocytic anemia. 7. Chronic pain and opioid dependency. 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 She then developed a dry cough and chest tightness. She said her lungs felt tight and had a sore throat. She had mild subjective fevers and a headache. She was recently diagnosed with gastritis on an EGD on 07/09, and has been on a PPI and Pepcid. She has been a lifelong smoker but has never been diagnosed with COPD. She uses 2 L of oxygen at night. Her primary care physician, Dr. Alatorre, is trying to get a sleep apnea evaluation study, given she is high risk on her home opioid doses. HOSPITAL COURSE BY PROBLEM: 1. Acute on chronic hypoxemic respiratory failure. This is likely secondary to bronchitis. No evidence of pneumonia. Respiratory PCR is negative. Suspect underlying COPD, given long tobacco use. She was treated with DuoNeb and completed a course of azithromycin and prednisone. She will continue 3 L oxygen at home. 2. Tobacco abuse. Declines patch. Suspect COPD. Recommend outpatient followup with a sql report developer for PFTs, once this acute exacerbation is improved. 3. Thrombocytopenia. This is resolved. 4. Chronic cervical pain and continuous opioid dependence. Continue home medications per PCP. Recommend that she decrease these, especially given underlying lung disease. 5. Normocytic anemia. No active bleeding. DISPOSITION: Patient is stable for discharge with 3 L of oxygen. Home with her daughter.. NEW MEDICATION: Albuterol inhaler. FOLLOWUP: 1. PCP, Dr. Alatorre. 2. Pulmonology in 1 month for PFTs and consultation. /[id number]/MODL MTDD
[2017-09-16] MEDS: fentaNYL 100 MCG PATCH TD SCH ×2 (15:19)
[2017-09-16 15:31] VITALS: BP 143/82; PULSE 76; RESP 16; TEMP 98.2; O2SAT 94
== END 2017-09-16 16:57 | disposition home or self-care (01) | DRG 190 ==
LOC: F1N 11:23 → OBSVTOIN 09-12 14:37
PROVIDERS: ADMIT Hospitalist; ATTEND Hospitalist
DX: J44.1 Chronic obstructive pulmonary disease with (acute) exacerbation (principal); J96.21 Acute and chronic respiratory failure with hypoxia; F11.20 Opioid dependence, uncomplicated; L51.1 Stevens-Johnson syndrome; J40 Bronchitis, not specified as acute or chronic; K29.70 Gastritis, unspecified, without bleeding; G89.29 Other chronic pain; D69.6 Thrombocytopenia, unspecified; D64.9 Anemia, unspecified; Z72.0 Tobacco use
CPT/HCPCS: 97161-GP; 97165-GO; 97530-GP; 97535-GO; G0378; G8978-GP-CI; G8979-GP-CI; G8980-GP-CI; G8987-GO-CI; G8988-GO-CI; G8989-GO-CI; J1650; J1940; J2405